=== PATIENT | female | born 1965 | race Caucasian/White ===

== ENCOUNTER 2017-10-11 09:33 | Emergency (ER) | payer OTHER ==
[~2017-10-11] VITALS: Ht 170.2 cm; Wt 72.6 kg
[~2017-10-11 09:33] MED LIST: AMOX1TAB12 PO; CATAFLAM50 MG; CATAFLAM50 MG PO; IBUPROFEN800 MG PO; NEURONTIN300 MG; ORPH100T; SEPTRA DS TABLE1 TAB PO; ZANTAC150 M3
== END 2017-10-11 10:48 | disposition home or self-care (01) ==
LOC: ER 09:33
DX: M54.5 Low back pain (principal)

== ENCOUNTER 2017-12-26 11:06 | Outpatient (CLI) | payer OTHER | END 2017-12-26 11:10 | disposition home or self-care (01) | LOC: RAD 11:06 | DX: M79.672 Pain in left foot (principal); M25.572 Pain in left ankle and joints of left foot ==

== ENCOUNTER 2018-01-02 08:58 | Outpatient (CLI) | payer OTHER | END 2018-01-02 09:04 | disposition home or self-care (01) | LOC: LAB 08:58 | DX: J30.89 Other allergic rhinitis (principal); I10 Essential (primary) hypertension; E78.4 Other hyperlipidemia; L29.8 Other pruritus; E55.9 Vitamin D deficiency, unspecified ==

== ENCOUNTER 2018-03-13 12:02 | Outpatient (CLI) | payer OTHER | END 2018-03-13 12:10 | disposition home or self-care (01) | LOC: RAD 12:02 → CIR.AMB 12:02 → RAD 12:10 | DX: M54.5 Low back pain (principal) ==

== ENCOUNTER 2018-06-12 12:27 | Outpatient (CLI) | payer OTHER | END 2018-06-12 13:15 | disposition home or self-care (01) | LOC: RAD 12:27 | DX: M75.42 Impingement syndrome of left shoulder (principal) ==

== ENCOUNTER 2018-07-12 10:59 | Outpatient (CLI) | payer OTHER | END 2018-07-12 11:03 | disposition home or self-care (01) | LOC: RAD 10:59 | DX: M25.511 Pain in right shoulder (principal) ==

== ENCOUNTER 2018-09-16 07:10 | Outpatient (CLI) | payer OTHER | END 2018-09-16 07:17 | disposition home or self-care (01) | LOC: MRI 07:10 | DX: M54.5 Low back pain (principal); M54.16 Radiculopathy, lumbar region | CPT/HCPCS: 72148 ==

== ENCOUNTER 2018-11-14 18:40 | Emergency (ER) | payer OTHER ==
[~2018-11-14] VITALS: Ht 170.2 cm; Wt 79.4 kg
== END 2018-11-14 22:30 | disposition home or self-care (01) ==
LOC: ER 18:40
DX: R10.84 Generalized abdominal pain (principal)

== ENCOUNTER 2019-04-23 11:00 | Outpatient (CLI) | payer OTHER | END 2019-04-23 11:08 | disposition home or self-care (01) | LOC: LAB 11:00 | DX: J11.1 Influenza due to unidentified influenza virus with other respiratory manifestations (principal) ==

== ENCOUNTER → 2019-05-07 09:55 | Outpatient (CLI) | payer OTHER | END | disposition home or self-care (01) | LOC: LAB 09:55 | DX: N39.0 Urinary tract infection, site not specified (principal); E78.49 Other hyperlipidemia; R79.89 Other specified abnormal findings of blood chemistry ==

== ENCOUNTER 2019-05-22 10:26 | Emergency (ER) | payer OTHER ==
[~2019-05-22] VITALS: Ht 172.7 cm; Wt 85.7 kg
== END 2019-05-22 14:12 | disposition home or self-care (01) ==
LOC: ER 10:26
DX: J06.9 Acute upper respiratory infection, unspecified (principal)

== ENCOUNTER 2019-05-25 11:18 | Outpatient (CLI) | payer OTHER | END 2019-05-25 11:28 | disposition home or self-care (01) | LOC: SONOGRAMA 11:18 | DX: M75.41 Impingement syndrome of right shoulder (principal); M75.42 Impingement syndrome of left shoulder ==

== ENCOUNTER 2019-11-14 14:13 | Outpatient (CLI) | payer OTHER | END 2019-11-14 14:21 | disposition home or self-care (01) | LOC: LAB 14:13 | DX: R60.0 Localized edema (principal) ==

== ENCOUNTER → 2019-11-19 10:34 | Outpatient (CLI) | payer OTHER | END | disposition home or self-care (01) | LOC: LAB 10:34 | PROVIDERS: ATTEND General Practice | DX: E78.2 Mixed hyperlipidemia (principal); E55.9 Vitamin D deficiency, unspecified; Z13.1 Encounter for screening for diabetes mellitus; I10 Essential (primary) hypertension ==

== ENCOUNTER 2019-12-05 07:57 | Outpatient (CLI) | payer OTHER | END 2019-12-05 08:08 | disposition home or self-care (01) | LOC: NUCLEAR 07:57 | PROVIDERS: ATTEND General Practice | DX: I87.2 Venous insufficiency (chronic) (peripheral) (principal) ==

== ENCOUNTER → 2019-12-21 13:44 | Outpatient (CLI) | payer OTHER | END | disposition home or self-care (01) | LOC: LAB 13:44 | PROVIDERS: ATTEND Specialist | DX: N83.209 Unspecified ovarian cyst, unspecified side (principal) ==

== ENCOUNTER 2019-12-26 14:20 | Outpatient (CLI) | payer OTHER | END 2019-12-26 14:31 | disposition home or self-care (01) | LOC: SONOGRAMA 14:20 → MAMO-SONO 14:20 → SONOGRAMA 14:31 | PROVIDERS: ATTEND Specialist | DX: N92.1 Excessive and frequent menstruation with irregular cycle (principal) ==

== ENCOUNTER → 2019-12-31 11:27 | Outpatient (CLI) | payer OTHER | END | disposition home or self-care (01) | LOC: LAB 11:27 | PROVIDERS: ATTEND Internal Medicine Allergy & Immunology | DX: R80.8 Other proteinuria (principal); E87.8 Other disorders of electrolyte and fluid balance, not elsewhere classified; E88.09 Other disorders of plasma-protein metabolism, not elsewhere classified; E58 Dietary calcium deficiency ==

== ENCOUNTER → 2020-01-02 07:24 | Outpatient (CLI) | payer OTHER | END | disposition home or self-care (01) | LOC: LAB 07:24 | PROVIDERS: ATTEND Internal Medicine Allergy & Immunology | DX: E87.8 Other disorders of electrolyte and fluid balance, not elsewhere classified (principal); R80.8 Other proteinuria; E88.09 Other disorders of plasma-protein metabolism, not elsewhere classified; E58 Dietary calcium deficiency ==

== ENCOUNTER 2020-03-24 13:03 | Outpatient (CLI) | payer OTHER | END 2020-03-24 15:00 | disposition home or self-care (01) | LOC: RAD 13:03 | DX: M17.0 Bilateral primary osteoarthritis of knee (principal) ==

== ENCOUNTER → 2020-07-09 09:33 | Outpatient (CLI) | payer OTHER | END | disposition home or self-care (01) | LOC: LAB 09:33 | PROVIDERS: ATTEND Internal Medicine | DX: D50.8 Other iron deficiency anemias (principal); R73.09 Other abnormal glucose; E78.2 Mixed hyperlipidemia; E78.00 Pure hypercholesterolemia, unspecified; E87.8 Other disorders of electrolyte and fluid balance, not elsewhere classified; N39.0 Urinary tract infection, site not specified; E55.9 Vitamin D deficiency, unspecified; Z83.49 Family history of other endocrine, nutritional and metabolic diseases; R97.8 Other abnormal tumor markers; Z12.11 Encounter for screening for malignant neoplasm of colon ==

== ENCOUNTER 2020-10-01 05:57 | Day surgery (SDC) | payer OTHER ==
[~2020-10-01 05:57] MED LIST changes: +ALBUTERO; +DAFLONEX-XL 11300 MG PO; +NORFLEX PO; +RELAFEN PO
[2020-10-01] MEDS ORDERED: DUI500 PO (09:00)
[2020-10-01] MEDS ORDERED: TRAMADOL HCL50 MG PO (09:00)
== END 2020-10-01 16:15 | disposition home or self-care (01) ==
LOC: CIR.AMB 05:57
PROVIDERS: ATTEND Orthopaedic Surgery Sports Medicine
DX: M23.322 Other meniscus derangements, posterior horn of medial meniscus, left knee (principal); M65.862 Other synovitis and tenosynovitis, left lower leg; Z20.822 Contact with and (suspected) exposure to COVID-19

== ENCOUNTER → 2020-10-09 09:20 | Outpatient (CLI) | payer OTHER ==
[~2020-10-09 09:20] MED LIST changes: +DUI500 PO; +TRAMADOL HCL50 MG PO
== END | disposition home or self-care (01) ==
LOC: LAB 09:20
PROVIDERS: ATTEND Physical Medicine & Rehabilitation
DX: M06.8A Other specified rheumatoid arthritis, other specified site (principal)

== ENCOUNTER 2020-12-04 08:00 | Outpatient (CLI) | payer OTHER ==
[2021-02-26] MEDS ORDERED: PEPCID AC20 MG PO (10:27)
[2021-02-26] MEDS ORDERED: ZANAFLEX2 M1 PO (10:27)
[2021-02-26] MEDS ORDERED: PROTONIX20 MG PO (10:28)
[2021-02-26] MEDS ORDERED: PREGABALIN75 MG PO (10:28)
[2021-02-26] MEDS ORDERED: DAFLONEX-XL 11300 MG PO (10:30)
== END 2020-12-04 08:30 | disposition home or self-care (01) ==
LOC: PPH VACUNA 08:00
DX: Z23 Encounter for immunization (principal)

== ENCOUNTER 2020-12-21 10:37 | Outpatient (CLI) | payer OTHER ==
[2021-02-26] MEDS ORDERED: PEPCID AC20 MG PO (10:27)
[2021-02-26] MEDS ORDERED: ZANAFLEX2 M1 PO (10:27)
[2021-02-26] MEDS ORDERED: PREGABALIN75 MG PO (10:28)
[2021-02-26] MEDS ORDERED: PROTONIX20 MG PO (10:28)
[2021-02-26] MEDS ORDERED: DAFLONEX-XL 11300 MG PO (10:30)
== END 2020-12-21 10:51 | disposition home or self-care (01) ==
LOC: RX STUDY 10:37
PROVIDERS: ATTEND Internal Medicine Gastroenterology
DX: R13.19 Other dysphagia (principal)

== ENCOUNTER 2021-03-04 06:00 | Day surgery (SDC) | payer OTHER ==
[~2021-03-04 06:00] MED LIST changes: +PEPCID AC20 MG PO; +PREGABALIN75 MG PO; +PROTONIX20 MG PO; +ZANAFLEX2 M1 PO
[2021-03-04] MEDS ORDERED: OXYC1TAB9 PO (10:10)
[2021-03-04] MEDS ORDERED: DUI500 PO (10:10)
[2021-03-04] MEDS ORDERED: ECOTRIN325 M1 PO (10:10)
== END 2021-03-04 15:10 | disposition home or self-care (01) ==
LOC: CIR.AMB 06:00
PROVIDERS: ATTEND Orthopaedic Surgery Sports Medicine
DX: M76.61 Achilles tendinitis, right leg (principal); M92.61 Juvenile osteochondrosis of tarsus, right ankle; Z20.822 Contact with and (suspected) exposure to COVID-19

== ENCOUNTER → 2021-04-30 08:57 | Outpatient (CLI) | payer OTHER ==
[~2021-04-30 08:57] MED LIST changes: +ECOTRIN325 M1 PO; +OXYC1TAB9 PO
== END | disposition home or self-care (01) ==
LOC: LAB 08:57
PROVIDERS: ATTEND Internal Medicine
DX: R73.09 Other abnormal glucose (principal); E78.2 Mixed hyperlipidemia; E78.00 Pure hypercholesterolemia, unspecified; E87.8 Other disorders of electrolyte and fluid balance, not elsewhere classified; R74.01 Elevation of levels of liver transaminase levels; D50.8 Other iron deficiency anemias; E55.9 Vitamin D deficiency, unspecified; Z83.49 Family history of other endocrine, nutritional and metabolic diseases; R97.8 Other abnormal tumor markers; Z12.11 Encounter for screening for malignant neoplasm of colon

== ENCOUNTER 2021-05-07 13:05 | Outpatient (CLI) | payer OTHER | END 2021-05-07 13:08 | disposition home or self-care (01) | LOC: LAB 13:05 | PROVIDERS: ATTEND Internal Medicine | DX: Z12.11 Encounter for screening for malignant neoplasm of colon (principal) ==

== ENCOUNTER 2021-06-17 10:11 | Outpatient (CLI) | payer OTHER | END 2021-06-17 10:12 | disposition home or self-care (01) | LOC: LAB 10:11 | PROVIDERS: ATTEND Physical Medicine & Rehabilitation | DX: M06.8A Other specified rheumatoid arthritis, other specified site (principal) ==

== ENCOUNTER 2021-06-17 15:10 | Outpatient (CLI) | payer OTHER | END 2021-06-17 15:30 | disposition home or self-care (01) | LOC: PPH VACUNA 15:10 | PROVIDERS: ATTEND Emergency Medicine Pediatric Emergency Medicine | DX: Z23 Encounter for immunization (principal) ==

== ENCOUNTER 2021-12-05 07:23 | Outpatient (CLI) | payer OTHER | END 2021-12-05 07:31 | disposition home or self-care (01) | LOC: NUCLEAR 07:23 | PROVIDERS: ATTEND Physical Medicine & Rehabilitation | DX: L03.116 Cellulitis of left lower limb (principal); I82.402 Acute embolism and thrombosis of unspecified deep veins of left lower extremity; Z88.2 Allergy status to sulfonamides; Z88.1 Allergy status to other antibiotic agents ==

== ENCOUNTER → 2022-10-23 | Emergency (ER) | payer OTHER ==
[~2022-10-23] VITALS: Ht 170.2 cm; Wt 77.1 kg
[~2022-10-23] MED LIST changes: +CIPRO500 MG PO
== END | disposition home or self-care (01) ==
LOC: ER 19:24
DX: S41.151A Open bite of right upper arm, initial encounter (principal); W54.0XXA Bitten by dog, initial encounter; Y93.9 Activity, unspecified; Y92.9 Unspecified place or not applicable; Z88.2 Allergy status to sulfonamides